=== PATIENT | male | born 1960 | race Caucasian/White ===

== ENCOUNTER 2020-07-05 08:04 | Outpatient (CLI) | payer BC ==
[2020-07-05] VITALS (8 sets, daily range): BP systolic 130–146; BP diastolic 54–85
[~2020-07-05] VITALS: Ht 190.5 cm; Wt 133.6 kg
[~2020-07-05 08:04] MED LIST: DABI150C PO; FENO135C4 PO; LISI1TAB32 PO; METF-950 PO
[2020-07-05] MEDS ORDERED: normal saline 500ml IV soln 500 ML IV ONE (09:05)
[2020-07-05] MEDS ORDERED: regadenoson 0.4mg/5ml syringe IV ONE (09:05)
[2020-07-05] MEDS ORDERED: nitroGLYCERIN 0.4mg SUBLingual tab SL PRN (09:05)
[2020-07-05] MEDS: aminophylline 250mg/10ml inj. IV PRN ×2 (09:41→10:18)
== END 2020-07-05 23:59 | disposition home or self-care (01) ==
LOC: RAD 08:04
PROVIDERS: ATTEND Internal Medicine Cardiovascular Disease
DX: I47.1 Supraventricular tachycardia (principal)
CPT/HCPCS: 78452; 93017; A9500; J0280; J2785; J7040

== ENCOUNTER 2024-11-13 12:40 | Outpatient (CLI) | payer MEDICARE ==
[~2024-11-13 12:40] MED LIST changes: -LISI1TAB32 PO; +LISI1TAB49 PO; +METF-1203 PO; -METF-950 PO
--- NOTE | 2024-11-13 14:19 | VASCULAR REPORT ---
Bilateral lower extremity venous duplex Clinical History: edema Comparison: None Findings: Duplex Doppler evaluation of the deep venous systems of both lower extremities from the common femoral veins to the popliteal veins including color Doppler and spectral/pulsed waveform analysis was performed. Reflux: ms SFJ (R): Compressible, Spontaneous, Respirophasic, Augmentation Reflux: ms FEM (R): Compressible, Spontaneous, Respirophasic, Augmentation Reflux: ms POP (R): Compressible, Spontaneous, Respirophasic, Augmentation Reflux: ms DFV (R): Compressible, Spontaneous, Respirophasic, Augmentation Reflux: ms PTV (R): Compressible, Spontaneous, Respirophasic, Augmentation Reflux: ms GSV (R): Compressible, Spontaneous, Respirophasic, Augmentation Reflux: ms Peroneals (R): Compressible, Spontaneous, Respirophasic, Augmentation Reflux: ms Vein Imaging (Left) CFV (L): Compressible, Spontaneous, Respirophasic, Augmentation Reflux: ms SFJ (L): Compressible, Spontaneous, Respirophasic, Augmentation Reflux: ms FEM (L): Compressible, Spontaneous, Respirophasic, Augmentation Reflux: ms POP (L): Compressible, Spontaneous, Respirophasic, Augmentation Reflux: ms DFV (L): Compressible, Spontaneous, Respirophasic, Augmentation Reflux: ms PTV (L): Compressible, Spontaneous, Respirophasic, Augmentation Reflux: ms GSV (L): Compressible, Spontaneous, Respirophasic, Augmentation Reflux: ms Peroneals (L): Compressible, Spontaneous, Respirophasic, Augmentation Reflux: ms CONCLUSION No sonographic evidence of deep venous thrombosis in bilateral lower extremities. Slight residual thrombus noted in the proximal right femoral vein. Normal compressible veins with spontaneous respirophasic flow and good augmentation throughout both legs. Signed by
--- NOTE | 2024-11-13 15:31 | RADIOLOGY REPORT ---
PROCEDURE: MR MRI C SPINE Indication: CERVICAL RADICULOPATHY COMPARISON: None TECHNIQUE: Multiplanar multisequence images of the the cervical spine are obtained. FINDINGS: The cervical vertebral body heights are maintained. Moderate multilevel disc space narrowing and desiccation. No abnormal marrow edema. Alignment grossly preserved. Atlantooccipital, atlantoaxial articulations intact. C2-3: Small disc osteophyte complex. No spinal canal stenosis. Moderate right and mild left neural foraminal stenosis. C3-4: Disc osteophyte complex narrowing the ventral and dorsal CSF spaces. Thecal sac measures 10 mm AP. No spinal canal stenosis. Moderate to severe bilateral neural foraminal stenosis. C4-5: Disc osteophyte complex narrowing the ventral and dorsal CSF spaces. Thecal sac measures 9 mm AP. Mild spinal canal stenosis. Severe right and moderate to severe left neural foraminal stenosis. C5-6: Disc osteophyte complex narrowing the ventral and dorsal CSF spaces. Thecal sac measures 10 mm AP. No spinal canal stenosis. Moderate to severe bilateral neural foraminal stenosis. C6-7: Small disc osteophyte complex. No spinal canal stenosis. Moderate to severe bilateral neural foraminal stenosis. C7-T1: Small disc osteophyte complex. No spinal canal stenosis. Moderate right and mild left neural foraminal stenosis. IMPRESSION: Moderate cervical degenerative disc disease. Mild spinal canal stenosis at C4-5. Moderate to severe multilevel neural foraminal stenosis as described above
== END 2024-11-13 23:59 | disposition home or self-care (01) ==
LOC: RAD 12:40
PROVIDERS: ATTEND Nurse Practitioner Family
DX: M50.10 Cervical disc disorder with radiculopathy, unspecified cervical region (principal); M25.78 Osteophyte, vertebrae; M48.02 Spinal stenosis, cervical region
CPT/HCPCS: 72141; 93970

== ENCOUNTER 2024-12-01 12:32 | Outpatient (CLI) | payer MEDICARE ==
--- NOTE | 2024-12-01 13:45 | VASCULAR REPORT ---
Left Lower Extremity Arterial Duplex Clinical History: Pain Comparison: None Technique: Duplex Doppler evaluation including color Doppler and spectral/pulsed waveform analysis of the lower extremity arteries was performed. Findings: LEFT: Peak systolic velocities are as follows: BLOCK PILER 117 cm/s Deep femoral 69 cm/s SFA proximal 145 cm/s SFA mid-portion 107 cm/s SFA distal 101 cm/s Popliteal 84 cm/s Posterior tibial 81 cm/s Anterior tibial 90 cm/s Peroneal 40 cm/s Dorsalis pedis 90 cm/s The waveforms are multiphasic. IMPRESSION: No hemodynamically significant stenosis based on peak systolic velocity criteria. REFERENCE VALUES, [facility]) vascular Imaging Lab Criteria: Peak systolic velocity ranges (in cm/sec) are as follows: <150 cm/s - <20 % stenosis 150-200 cm/s - 20-49% stenosis 200-300 cm/s - 50-75% stenosis >300 cm/s -> 75% stenosis
== END 2024-12-01 23:59 | disposition home or self-care (01) ==
LOC: VAS 12:32
PROVIDERS: ATTEND Nurse Practitioner Family
DX: M79.605 Pain in left leg (principal)
CPT/HCPCS: 93926